=== PATIENT | female | born 1965 | race Caucasian/White ===

== ENCOUNTER 2016-10-27 23:52 | Emergency (ER) | payer OTHER, MEDICARE ==
[2016-10-28] MEDS ORDERED: FENTANYL PATCH 25 MCG/72 HR 1 EACH TD ONE (01:18)
[2016-10-28] MEDS ORDERED: FENTANYL TD ONE (01:18)
[2016-10-28] MEDS ORDERED: KETOROLAC TROMETHAMINE 60 MG/2 ML VIAL ONE (01:22)
[2016-10-28] MEDS ORDERED: METOCLOPRAMIDE HCL 5 MG/ML 2ML VIAL ONE (01:22)
[2016-10-28] MEDS ORDERED: DIPHENHYDRAMINE HCL 50 MG/1 ML VIAL ONE (01:22)
== END 2016-10-28 02:19 | disposition home or self-care (01) ==
LOC: ED 23:52
DX: G44.209 Tension-type headache, unspecified, not intractable (principal); G43.909 Migraine, unspecified, not intractable, without status migrainosus; G35 Multiple sclerosis
CPT/HCPCS: 99283 ×2; 96372 ×3; J1200; J2765; J1885